=== PATIENT | female | born 2005 | race Caucasian/White ===

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

== ENCOUNTER 2023-06-10 22:11 | Emergency (ER) | payer BC, SELFPAY ==
[2023-06-10 22:26] VITALS: BP 93/62; PULSE 102; RESP 20; TEMP 36.6; O2SAT 97; BMI 20.8
--- OUTSIDE RECORDS SUMMARY | 2023-06-10 22:50 | XMS_ITS | Patient Health Record ---
Author Name Unknown Organization Unknown Care Team Providers Care Log Stacker Operator Name Role Phone Kaylyn Pinto Unavailable [phone] ALLERGIES Allergen (clinical drug ingredient) Drug/Non Drug Allergy documented on EMR Reaction Allergy Type Onset Date Status sulfa (uncoded) Unknown Allergy Acti ve penicillin Unknown Drug Allergy Active RESULTS Component Value Reference Range Notes URINALYSIS, COMPLETE W/REFLE X TO CULTURE Reviewed date:04/05/2023 11:56:55 AM Interpretation: Performing Lab:[facility], [facility] [id number] [facility]sleRS[address] Davon Retana Notes/Report: Received Date: 0 COLOR YELLOW YELLOW APPEARANCE CLEAR CLEAR SPECIFIC GRAVITY 1.022 1.001-1.035 PH 6.0 5.0-8.0 GLUCOSE NEGATIVE NEGATIVE BILIRUBIN NEGATIVE NEGATIVE KETONES NEGATIVE NEGATIVE OCCULT BLOOD NEGATIVE NEGATIVE PROTEIN NEGATIVE NEGATIVE NITRITE NEGATIVE NEGATIVE LEUKOCYTE ESTERASE NEGATIVE NEGATIVE WBC NONE SEEN < OR = 5 /HPF RBC NONE SEEN < OR = 2 /HPF SQUAMOUS EPITHELIAL CELLS NONE SEEN < OR = 5 /HPF BACTERIA NONE SEEN NONE SEEN /HPF CALCIUM OXALATE CRYSTALS FEW NONE OR FEW /HPF HYALINE CAST NONE SEEN NONE SEEN /LPF NOTE See Note This urine was analyzed for the presence of WBC, RBC, bacteria, casts, and other formed elements. Only those elements seen were reported. REFLEXIVE URINE CULTURE See Note NO C ULTURE INDICATED REASON FOR REFERRAL No Information MEDICATIONS Medication SIG (Take, Route, Frequency, Duration) Notes Start Date End Date Status Remicade 100 mg as directed intravenously every 8 weeks Active Nexplanon 68 mg 1 ea subcutaneously once Active Fluocinonide 0.05% 1 silas applied topica lly 3 times a day PRN scalp irritation. Max use 14 consecutive days. for 14 days 04/02/2023 Active ZyrTEC 10 mg 1 tab(s) orally once a day Not-Taking atenolol 50 mg 1 tab(s) orally once a day for 30 day(s) Not-Taking HydrOXYzine Hydrochloride hydrochloride 25 mg 1 tab(s) orally at bedtime PRN insomnia for 90 days 04/02/2023 Active IMMUNIZATIONS Vaccine Route Administration Date Status Comme nts Influenza IM Intramuscular 05/27/2020 Administered PROBLEMS Problem Type ICD Code Onset Dates Problem Status W/U Status Risk SNOMED Code Notes Problem Insomnia, unspecified (G47.00) Active confirmed Insomnia (279271754) Problem Supraventricular tachycardia (I47.1) Active confirmed Supraven tricular tachycardia (9806889) Problem Ulcerative colitis, unspecified, without complications (K51.90) Active confirmed Ulcerative coli tis (52411871) VITAL SIGNS Heart Rate 73 /min 04/02/2023 Temperature 97.3 degrees Fahrenheit 04/02/2023 Oximetry 98% 04/02/2023 Blood pressure diastolic 78 mm Hg 04/02/2023 Height 64.0 in 04/02/2023 Blood pressure systolic 122 mm Hg 04/02/2023 Weight 124.2 lbs 04/02/2023 BMI 21.32 04/02/2023 Encounters Encounter Location Date Provider Diagnosis [address] [address] 04/02/2023 Kaylyn Pinto Ulcerative colitis, unspecified, without complications K51.90 ; Encounter for general adult medical examination with abnormal findings Z00.01 ; Supraventricular tachycardia I47.1 ; Insomnia, unspecified G47.00 and Other fatigue R53.[address] [address] 05/24/2023 Kaylyn Pinto ASSESSMENTS Encounter Date Diagnosis Assessment Notes Treatment Notes Treatment Clinical Notes 04/02/2023 Encounter for genera l adult medical examination with abnormal findings (ICD-10 - Z00.01) lab order given, she will have labs drawn at GI appt tomorrow 04/02/2023 Ulcerative colitis, unspecified, without complications (ICD-10 - K51.90) 04/02/2023 Supraventricular tachycardia (ICD-10 - I47.1) 04/02/2023 Insomnia, unspecifie d (ICD-10 - G47.00) 04/02/2023 Other fatigue (ICD-1 0 - R53.83) PLAN OF TREATMENT Pending Test Test Name Order Date IRON, TOTAL 04/02/2023 CBC (INCLUDES DIFF/PLT) 04/02/2023 VITAMIN B12/FOLATE, SERUM PANEL 04/02/20 COMPREHENSIVE METABOLIC PANEL W/EGFR TSH, 3RD GENERATION W/REFLEX TO FT4 03/14 Insurance Providers Payer Name Payer Address Payer Phone Subscriber Number Group Number Insured Name Patient Relationship to Insured Coverage Start Date Coverage End Date [employer] [address] [place] [address] [phone] [id number] Yazmin Dudley Self - patient is the insured MEDICAL (GENERAL) HISTORY Medical History History ICD Code SVT Ulcerative colitis Surgical History Surgery Date(Month/Year)
--- NOTE | 2023-06-10 23:17 | ED_ITS ---
HPI - General Adult General Date Seen: 06/10/23 Chief complaint: Chest Pain Stated complaint: heart palpitations lasted 30 min has svt Time Seen by Provider: 06/10/23 22:28 Source: patient Mode of arrival: ambulatory Limitations: no limitations History of Present Illness HPI narrative: Patient is a 18-year-old with a history of SVT since she was 11. She is from [place], she is a [employer] student. She used to be on atenolol but around a year ago stopped taking it daily and now uses that on a p.r.n. basis. She has infrequent bouts of SVT but tonraquel had onset of symptoms, took an atenolol, and then it took about half an hour for her symptoms to resolve. She says usually they go away pretty quickly and tonight was unusual in terms of how long it lasted. She said she and her mom were both kind of freaking out. By the time she got to the hospital palpitations had stopped and she now feels back to normal. She notes a little bit of soreness in her chest, no difficulty breathin g. She denies any recent illness or injury. She has no complaints otherwise at this time. Related Data Home Medications Medication Instructions Recorded Confirmed atenolol 50 mg tablet 50 mg PO Q24H PRN 04/21/22 06/10/23 cetirizine 10 mg capsule (Zyrtec) 10 mg PO DAILY PRN 04/21/22 06/10/23 rizatriptan 10 mg tablet 10 mg PO Q2H PRN 04/21/22 06/10/23 etonogestrel 68 mg subdermal 1 implant subdermal 08/24/22 implant (Nexplanon) infliximab 100 mg intravenous IV .every 8 weeks 06/10/23 solution (Remicade) Allergies Allergy/AdvReac Type Severity Reaction Status Date / Time Sulfonylureas Allergy Unknown Verified 06/10/23 22:24 Penicillins Allergy Verified 06/10/23 22:24 Sulfa (Sulfonamide Allergy Verified 06/10/23 22:24 Antibiotics) Review of Systems Status of ROS: Reports: 6 or more systems reviewed and unremarkable except as noted in History and below PFSH PFSH Social History Smoking Status: Never smoker Do you use any of these nicotine containing products: None Non-prescribed substance use: denies use Exam Narrative: Exam Narrative: Vital signs as noted above. In general, an alert, well-appearing young woman. Head: Normocephalic, atraumatic. Eyes: Pupils are equal reactive. Extraocular movements are full. Conjunctivae are normal. ENT: Mucous membranes are moist. Neck: Supple without lymphadenopathy. Heart: Regular rate and rhythm. No murmur or rub. Lungs: Clear bilaterally. No increased work of breathing, crackles or wheezes. Extremities: Well perfused. No edema. No calf tenderness. Pulses intact. Neurologic: Patient is alert and oriented to person and place. Speech is fluent. Face is symmetric. Moves all extremities equally. Affect: Normal. Skin: Warm and dry. Well perfused. Const: Vital Signs, click to edit/add: Vital Signs - 24 hr 06/10/23 22:26 Temperature 97.8 F Pulse Rate [Pulse Oximeter] 102 H Respiratory Rate 20 Blood Pressure [Ri ght Upper Arm] 93/62 Pulse Oximetry 97 Oxygen Delivery Me thod Room Air Documenting provider has reviewed patient's vital signs: yes Course Course ED Course: I did an EKG here, she is in a normal sinus rhythm she has a significant first- degree AV block of 336 milliseconds. She does say that a 1st degree AV block is been noted previously. She has had evaluation with Cardiology in the past and says that structurally everything was normal. The really only outlying feature of neil's episode was that it lasted longer than usual. It did abort prior to arrival here and she says she was not sure whether she should come in or not but decided to get checked out. I offered blood work but also told her that I did not think it would likely climate change risk assessor, she does not have any reason for electrolyte abnormalities. Does have ulcerative colitis but has not had significant diarrhea this is well controlled. She would prefer not to do additional workup at this time which I think is reasonable. If she is having more frequent bouts of SVT or is finding that they are lasting longer, she can certainly talk with her biscuitware brusher about taking atenolol regularly again. Return at any time for persistent or severe symptoms. Vital Signs Vital signs: Initial Vital Signs Temperature 97.8 F 06/10/23 22:26 Temperature Source Temporal Artery Scan 06/10/23 22:26 Pulse Rate 102 H 06/10/23 22:26 Pulse Rhythm Regular 06/10/23 22:26 Pulse Strength 3+ Normal 06/10/23 22:26 Respiratory Rate 20 06/10/23 22:26 Blood Pressure 93/62 06/10/23 22:26 Blood Pressure Mean 72 06/10/23 22:26 Blood Pressure Position Sitting 06/10/23 22:26 Pulse Oximetry 97 06/10/23 22:26 Oxygen Delivery Method Room Air 06/10/23 22:26 Vital Signs Temperature 97.8 F 06/10/23 22:26 Pulse Rate 102 H 06/10/23 22:26 Respiratory Rate 20 06/10/23 22:26 Blood Pressure 93/62 06/10/23 22:26 Pulse Oximetry 97 06/10/23 22:26 Oxygen Delivery Method Room Air 06/10/23 22:26 Temperature 97.8 F 06/10/23 22:26 Pulse Rate 102 H 06/10/23 22:26 Respiratory Rate 20 06/10/23 22:26 Blood Pressure 93/62 06/10/23 22:26 Pulse Oximetry 97 06/10/23 22:26 Oxygen Delivery Method Room Air 06/10/23 22:26 Discharge Plan Discharge Clinical Impression: Hx of supraventricular tachycardia Patient Disposition: Home, Self-Care Condition: Improved Instructions: Supraventricular Tachycardia (ED) Additional Instructions: Return as needed for symptoms that persist despite treatment, or for new symptoms such as fainting, severe pain, difficulty breathing. Discuss further with her biscuitware brusher as needed if you are having more frequent episodes of SVT. Prescriptions: No Action rizatriptan 10 mg tablet 10 mg PO Q2H PRN Patient Comments: TAKE ONE TABLET BY MOUTH AT ONSET OF HEADACHE IF NEEDED atenolol 50 mg tablet 50 mg PO Q24H PRN Zyrtec 10 mg capsule 10 mg PO DAILY PRN Nexplanon 68 mg implant 1 implant subdermal infliximab [Remicade] 100 mg recon soln IV .every 8 weeks Follow Up/Referrals: Provider,Not a Local [Primary Care Provider] - Stand Alone Forms: MyHealth Info Instructions
== END 2023-06-10 23:01 | disposition home or self-care (01) ==
PROVIDERS: Emergency Provider Emergency Medicine
DX: I47.10 Supraventricular tachycardia, unspecified (principal)
CPT/HCPCS: 93005; 99283

== ENCOUNTER 2023-11-13 13:00 | Outpatient (RCR) | payer BC, SELFPAY ==
[2023-05-28 11:35] LABS: Basophils Absolute Auto 0.03 K/uL (0.00-0.30); Basophils Percent Auto 0.4 % (0.0-3.0); Eosinophils Percent Auto 10.3 % (0.0-7.0); Hematocrit 42.6 % (33.0-51.0); Hemoglobin* 13.9 gm/dL (12.0-16.0); Lymphocytes Absolute Auto 3.06 K/uL (0.90-2.90); Lymphocytes Percent Auto 39.3 % (20-44); Mean Corpuscular HGB Conc 33 gm/dL (32-36); Mean Corpuscular Hemoglobin 31 pg (26-34); Mean Corpuscular Volume 94 fL (80-100); Monocytes Percent Auto 6.2 % (0.0-11.0); Neutrophils Absolute Auto 3.42 K/uL (1.7-7.0); Neutrophils Percent Auto 43.8 % (42.0-72.0); Platelet Count* 296 K/uL (140-440); RDW Coefficient of Variation % 12.7 % (11.5-15.5); Red Blood Count 4.53 m/uL (4.00-5.20); White Blood Count* 7.79 K/uL (4.50-11.00)
[2023-05-28 11:36] LABS: Slide Review Reflex No
[2023-05-28 11:38] VITALS: BP 95/54; PULSE 76; RESP 16; TEMP 36.9; O2SAT 100
[2023-05-28 11:49] LABS: Albumin* 4.5 g/dL (3.3-5.0); Chloride* 107 mmol/L (96-114); Potassium* 3.7 mmol/L (3.6-5.1); Sodium* 141 mmol/L (135-149)
[2023-05-28 11:51] LABS: Creatinine* 0.6 mg/dL (0.5-1.5); Estimated Glomerular Filt Rate 132 ml/min
[2023-05-28 11:52] LABS: Alanine Aminotransferase* 18 U/L (4-35); Alkaline Phosphatase* 64 U/L (40-150); Anion Gap 12 mEq/L (7-15); Aspartate Amino Transferase* 26 U/L (12-35); Bilirubin Total* 0.6 mg/dL (0.1-1.5); Blood Urea Nitrogen* 14 mg/dL (5-24); Carbon Dioxide* 22 mmol/L (20-32); Glucose* 84 mg/dL (60-115); Total Protein* 7.4 g/dL (6.0-8.3)
[2023-05-28 11:53] LABS: Calcium* 9.3 mg/dL (8.4-10.6)
[2023-05-28] MEDS: HYDROCORTISONE SOD SUCCINATE 50 MG/ML inj 200 MG IVP (11:57)
[2023-05-28] MEDS: ACETAMINOPHEN 325 MG TABLET 650 MG PO (11:57)
[2023-05-28] MEDS: 0.9 % SODIUM CHLORIDE 250 ml 250 ML 35 ML IV (11:58)
[2023-05-28 12:03] LABS: C Reactive Protein* < 0.5 mg/dL (0.5-1.0); Iron* 91 ug/dL (37-170)
--- NOTE | 2023-05-28 12:30 | ONC.NURNOTE ---
Patient has had 25lbs weight loss since last winter. Her PCP is aware and had extra labs drawn today. Those will be faxed by Lab. Original order for Remicade was 400mg. When we saw patient back in september, patient had already had some weight loss and verbal order from SERGO Blanchard was given to pharmacy to give 300mg. Today, patient weighed 122lbs and dose was for 277mg (rounded up to 300mg). Pharmacy made the change in the system based off of the verbal order that was given back in September. Will update Dr. Villatoro when Remicade assessment and labs are faxed.
[2023-05-28 12:41] LABS: Vitamin B12* 555 pg/mL (243-894)
--- NOTE | 2023-10-25 11:17 | ONC.NURNOTE ---
Received new orders for Remicade from Dr. Villatoro, submitted to for prior auth. Remicade denied at our facility due to site of care and pt having a car and the ability to drive. Former Hand has spoken to Clementine- Dr. Villatoro's nurse this morning and she is aware of the situation. Pt's mother left message stating she has spoken to her ins company hoping they will approve the infusion in [facility], she wanted to make an appt for 11/13/23 for Remicade to hold her spot. Former Hand then called Clementine at [facility] office who spoke to pt's insurance company and feel she will not be approved for [facility] infusion center. Clementine will call pt's mother and discuss situation.
--- NOTE | 2023-11-02 12:04 | URNOTE ---
Addendum entered by Mabel Frias RN 11/07/23 10:10: Verified per Evelyn Bowser at [facility] this is approved as stated below with REf #[id number]. Call ref #[id number] Original Note: Received approval of Remicade (J1745) from [facility]. Approved 11/12/2023-03/03/2024 for 3 visits. REf #[id number]
--- NOTE | 2023-11-05 11:12 | ONC.NURNOTE ---
Lm for Dr. Villatoro clarifying 2 things. 1) Regarding Remicade dosing. Dosing with wt of 55.9kg is 300mg, from 09/18/23 at pt's home clinic in [place]. Current order is for 400mg. Asked Dr. Villatoro if he wants to order weight-based dosing or stay with 400mg? 2) Regarding premeds, current orders are for Acetaminophen and Solu-Cortef. In [place] pt also received Benadryl 25mg PO. LM for Dr. Villatoro asking if wants to add Benadryl to premeds. Regarding ordering of Remicade: Received a fax from [facility] requesting prescription for Remicade; fax addressed to Dr. Villatoro with [facility] fax number. Reviewed UR notes; PA does not specify ordering from a specialty pharmacy. Reviewed with Jordyn in pharmacy; with previous infusions, pharmacy ordered Remicade per usual process; it has not come from a specialty pharmacy. Reviewed with pt; she states that at one point her insurance was coordinating her to possibly get med from [facility]/receive at [facility], but both of those plans have ceased, as she has short term approval per UR note. Pt scheduled for Remicade next week.
--- NOTE | 2023-11-08 09:19 | ONC.NURNOTE ---
[facility] Infliximab prescription had been sent to [facility] when pt was anticipated to receive infusions at [facility]. Confirmed PA for NH&C does not require ordering through specialty pharmacy. Prescription cancelled with [facility].
--- NOTE | 2023-11-08 09:23 | ONC.NURNOTE ---
Diagnosis: Ulcerative Colitis
--- NOTE | 2023-11-12 09:14 | ONC.NURNOTE ---
Received PA request from [facility] for infliximab solution. Architectural Modeler called patient to find out if she was aware that mediation needed to be ordered from specialty pharmacy, she was unaware. Concurrently, board writer contacted pharmacy to determine if we have in the past ordered her medication from a specialty pharmacy. Therefore patient's medication to be ordered as buy and bill. Patient aware.
[2023-11-13] MEDS: 0.9 % SODIUM CHLORIDE 250 ml 250 ML 35 ML IV (13:23)
[2023-11-13] MEDS: diphenhydrAMINE 25 MG CAPSULE PO (13:23)
[2023-11-13] MEDS: HYDROCORTISONE SOD SUCCINATE 50 MG/ML inj 200 MG IVP (13:23)
[2023-11-13] MEDS: ACETAMINOPHEN 325 MG TABLET 650 MG PO (13:23)
[2023-11-13 13:30] VITALS: BP 104/63; PULSE 94; RESP 16; TEMP 36.6; O2SAT 98
[2023-11-13] MEDS: inFLIXimab (Remicade) 300 MG, TUBING PRIMARY 1 EACH, In-line 0.2 micron filter set 1 EA... 40 MG IV (13:40)
[2024-06-24 09:09] LABS: Basophils Absolute Auto 0.04 K/uL (0.00-0.30); Basophils Percent Auto 0.5 % (0.0-3.0); Eosinophils Absolute Auto 0.25 K/uL (0.00-0.50); Eosinophils Percent Auto 3.2 % (0.0-7.0); Hematocrit 38.8 % (33.0-51.0); Lymphocytes Percent Auto 58.6 % (20-44); Mean Corpuscular HGB Conc 34 gm/dL (32-36); Mean Corpuscular Hemoglobin 31 pg (26-34); Mean Corpuscular Volume 94 fL (80-100); Monocytes Percent Auto 6.9 % (0.0-11.0); Neutrophils Percent Auto 30.8 % (42.0-72.0); Platelet Count* 241 K/uL (140-440); RDW Coefficient of Variation % 11.9 % (11.5-15.5); Red Blood Count 4.15 m/uL (4.00-5.20); White Blood Count* 7.85 K/uL (4.50-11.00)
[2024-06-24 09:25] LABS: Chloride* 105 mmol/L (96-114)
[2024-06-24 09:26] LABS: Albumin* 4.3 g/dL (3.3-5.0); Potassium* 3.8 mmol/L (3.6-5.1); Sodium* 138 mmol/L (135-149)
[2024-06-24 09:28] LABS: Creatinine* 0.6 mg/dL (0.5-1.5); Est. Creatinine Clearance* 128.62; Estimated Glomerular Filt Rate 131 ml/min
[2024-06-24 09:29] LABS: Alanine Aminotransferase* 16 U/L (4-35); Alkaline Phosphatase* 69 U/L (40-150); Anion Gap 8 mEq/L (7-15); Aspartate Amino Transferase* 24 U/L (12-35); Bilirubin Total* 0.4 mg/dL (0.1-1.5); Blood Urea Nitrogen* 10 mg/dL (5-24); Calcium* 9.3 mg/dL (8.4-10.6); Carbon Dioxide* 25 mmol/L (20-32); Glucose* 85 mg/dL (60-115); Total Protein* 6.9 g/dL (6.0-8.3)
[2024-06-24 09:32] LABS: C Reactive Protein* < 0.5 mg/dL (0.5-1.0)
[2024-06-24 09:59] LABS: Slide Review Reflex No
== END 2023-11-24 23:59 | disposition home or self-care (01) ==
LOC: CCIC 13:00
PROVIDERS: Clinical Nurse Specialist; Referring Provider Internal Medicine Gastroenterology; Visit Provider Internal Medicine Gastroenterology
DX: K51.90 Ulcerative colitis, unspecified, without complications (principal)
CPT/HCPCS: 36415; 36592; 80053; 82607; 83540; 84443; 85025; 86140; 96413; 96415; A9270; J1720; J7050

== ENCOUNTER 2024-04-29 09:00 | Outpatient (RCR) | payer BC, SELFPAY ==
[2024-01-08 13:07] VITALS: BP 104/72; PULSE 86; RESP 18; TEMP 36.6; O2SAT 97
[2024-01-08] MEDS: METHYLPREDNISOLONE SOD SUCC 62.5 MG/ML (125) 200 MG IVP (13:32)
[2024-01-08] MEDS: 0.9 % SODIUM CHLORIDE 250 ml 250 ML 35 ML IV (13:33)
[2024-01-08] MEDS: ACETAMINOPHEN 325 MG TABLET 650 MG PO (13:33)
[2024-01-08] MEDS: inFLIXimab (Remicade) 300 MG, TUBING PRIMARY 1 EACH, In-line 0.2 micron filter set 1 EA... 40 MG IV (13:51)
--- NOTE | 2024-02-06 09:44 | URNOTE ---
Received approval of Remicade (J1745) from [facility]. Approved 03/04/2024 to 03/03/2025 for 7 treatments Ref# [id number]. Note: Pt has existing PA for Remicade (J1745) with date range 11/12/2023-03/03/2024 for 3 visits. Ref #[id number]
[2024-03-04 11:31] VITALS: BP 89/71; PULSE 76; RESP 16; TEMP 36.5; O2SAT 99
[2024-03-04] MEDS: ACETAMINOPHEN 325 MG TABLET 650 MG PO (11:44)
[2024-03-04] MEDS: 0.9 % SODIUM CHLORIDE 250 ml 250 ML 30 ML IV (11:45)
[2024-03-04] MEDS: METHYLPREDNISOLONE SOD SUCC 62.5 MG/ML (125) 200 MG IVP (12:02)
[2024-03-04] MEDS: inFLIXimab (Remicade) 300 MG, TUBING PRIMARY 1 EACH, In-line 0.2 micron filter set 1 EA... 40 MG IV (12:36)
[2024-04-29 08:55] VITALS: BP 94/61; PULSE 74; RESP 14; TEMP 36.3; O2SAT 98
[2024-04-29 09:18] LABS: Basophils Absolute Auto 0.06 K/uL (0.00-0.30); Basophils Percent Auto 0.8 % (0.0-3.0); Eosinophils Absolute Auto 0.35 K/uL (0.00-0.50); Eosinophils Percent Auto 4.8 % (0.0-7.0); Hematocrit 43.1 % (33.0-51.0); Lymphocytes Percent Auto 53.2 % (20-44); Mean Corpuscular HGB Conc 33 gm/dL (32-36); Mean Corpuscular Hemoglobin 31 pg (26-34); Mean Corpuscular Volume 96 fL (80-100); Monocytes Percent Auto 4.8 % (0.0-11.0); Neutrophils Percent Auto 36.4 % (42.0-72.0); Platelet Count* 259 K/uL (140-440); RDW Coefficient of Variation % 12.2 % (11.5-15.5); Red Blood Count 4.51 m/uL (4.00-5.20); White Blood Count* 7.27 K/uL (4.50-11.00)
[2024-04-29 09:20] LABS: Slide Review Reflex No
[2024-04-29] MEDS: ACETAMINOPHEN 325 MG TABLET 650 MG PO (09:25)
[2024-04-29 09:30] LABS: Albumin* 4.5 g/dL (3.3-5.0); Chloride* 105 mmol/L (96-114)
[2024-04-29] MEDS: SODIUM CHLORIDE 0.9 % (FLUSH) 10 ML SYRINGE IVF (09:30)
[2024-04-29 09:31] LABS: Potassium* 3.9 mmol/L (3.6-5.1); Sodium* 139 mmol/L (135-149)
[2024-04-29] MEDS: 0.9 % SODIUM CHLORIDE 250 ml 250 ML 30 ML IV (09:32)
[2024-04-29 09:33] LABS: Bilirubin Total* 0.5 mg/dL (0.1-1.5); Creatinine* 0.7 mg/dL (0.5-1.5); Est. Creatinine Clearance* 110.24; Estimated Glomerular Filt Rate 126 ml/min
[2024-04-29 09:34] LABS: Alanine Aminotransferase* 17 U/L (4-35); Alkaline Phosphatase* 71 U/L (40-150); Anion Gap 8 mEq/L (7-15); Aspartate Amino Transferase* 27 U/L (12-35); Blood Urea Nitrogen* 13 mg/dL (5-24); Calcium* 9.2 mg/dL (8.4-10.6); Carbon Dioxide* 26 mmol/L (20-32); Glucose* 101 mg/dL (60-115); Total Protein* 7.1 g/dL (6.0-8.3)
[2024-04-29 09:41] LABS: C Reactive Protein* < 0.5 mg/dL (0.5-1.0)
[2024-04-29] MEDS: HYDROCORTISONE SOD SUCCINATE 50 MG/ML inj 200 MG IVP (10:00)
[2024-04-29] MEDS: inFLIXimab (Remicade) 300 MG, TUBING PRIMARY 1 EACH, In-line 0.2 micron filter set 1 EA... 40 MG IV (10:21)
[2024-06-24 09:12] VITALS: BP 97/67; PULSE 52; RESP 18; TEMP 36.5; O2SAT 98
[2024-06-24] MEDS: ACETAMINOPHEN 325 MG TABLET 650 MG PO (09:25)
[2024-06-24] MEDS: HYDROCORTISONE SOD SUCCINATE 50 MG/ML inj 200 MG IVP (09:43)
[2024-06-24] MEDS: SODIUM CHLORIDE 0.9 % (FLUSH) 10 ML SYRINGE IVF (09:43)
[2024-06-24] MEDS: inFLIXimab (Remicade) 300 MG, TUBING PRIMARY 1 EACH, In-line 0.2 micron filter set 1 EA... 40 MG IV (10:15)
[2024-06-26 19:21] LABS: QuantiFERON Mitogen minus NIL 9.92 IU/mL; QuantiFERON NIL 0.08 IU/mL; Quantiferon Plus TB1 minus NIL 0.02 IU/mL (<=0.34); Quantiferon Plus TB2 minus NIL 0.02 IU/mL (<=0.34); Quantiferon TB Gold Plus Negative (Negative)
== END 2024-07-06 23:59 | disposition home or self-care (01) ==
LOC: CCIC 09:00
PROVIDERS: Clinical Nurse Specialist; Referring Provider Internal Medicine Gastroenterology; Visit Provider Internal Medicine Gastroenterology
DX: K51.90 Ulcerative colitis, unspecified, without complications (principal)
CPT/HCPCS: 36415; 80053; 85025; 86140; 86480; 96365; 96366; 96376; 96413; 96415; A9270; J1720; J2919; J7050

== ENCOUNTER 2024-12-19 12:45 | Outpatient (RCR) | payer BC, SELFPAY ==
[2024-08-19 13:20] LABS: Hematocrit 41.2 % (33.0-51.0); Hemoglobin* 13.7 gm/dL (12.0-16.0); Immature Granulocytes Abs Auto 0.00 K/uL (0.00-0.30); Immature Granulocytes Pct Auto 0.0 %; Lymphocytes Absolute Auto 3.21 K/uL (0.90-2.90); Mean Corpuscular HGB Conc 33 gm/dL (32-36); Mean Corpuscular Hemoglobin 31 pg (26-34); Mean Corpuscular Volume 94 fL (80-100); RDW Coefficient of Variation % 11.9 % (11.5-15.5); Red Blood Count 4.40 m/uL (4.00-5.20); White Blood Count* 8.95 K/uL (4.50-11.00)
[2024-08-19 13:23] VITALS: BP 102/70; PULSE 92; RESP 16; TEMP 36.9; O2SAT 99
[2024-08-19 13:35] LABS: Chloride* 103 mmol/L (96-114)
[2024-08-19 13:36] LABS: Albumin* 4.4 g/dL (3.3-5.0); Sodium* 137 mmol/L (135-149)
[2024-08-19 13:37] LABS: Potassium* 3.9 mmol/L (3.6-5.1)
[2024-08-19] MEDS: ACETAMINOPHEN 325 MG TABLET 650 MG PO (13:38)
[2024-08-19 13:39] LABS: Alanine Aminotransferase* 16 U/L (4-35); Alkaline Phosphatase* 73 U/L (40-150); Anion Gap 7 mEq/L (7-15); Aspartate Amino Transferase* 23 U/L (12-35); Bilirubin Total* 0.4 mg/dL (0.1-1.5); Carbon Dioxide* 27 mmol/L (20-32); Creatinine* 0.7 mg/dL (0.5-1.5); Est. Creatinine Clearance* 110.24; Estimated Glomerular Filt Rate 126 ml/min; Total Protein* 7.1 g/dL (6.0-8.3)
[2024-08-19 13:40] LABS: Blood Urea Nitrogen* 10 mg/dL (5-24); Calcium* 9.0 mg/dL (8.4-10.6); Glucose* 112 mg/dL (60-115)
[2024-08-19 13:41] LABS: Slide Review Reflex No
[2024-08-19] MEDS: HYDROCORTISONE SOD SUCCINATE 50 MG/ML inj 200 MG IVP (13:47)
[2024-08-19] MEDS: inFLIXimab (Remicade) 300 MG, TUBING PRIMARY 1 EACH, In-line 0.2 micron filter set 1 EA... 40 MG IV (14:10)
[2024-10-14 13:16] LABS: Hematocrit 44.0 % (33.0-51.0); Hemoglobin* 14.6 gm/dL (12.0-16.0); Immature Granulocytes Abs Auto 0.01 K/uL (0.00-0.30); Immature Granulocytes Pct Auto 0.1 %; Lymphocytes Absolute Auto 3.18 K/uL (0.90-2.90); Mean Corpuscular HGB Conc 33 gm/dL (32-36); Mean Corpuscular Hemoglobin 31 pg (26-34); Mean Corpuscular Volume 94 fL (80-100); RDW Coefficient of Variation % 12.3 % (11.5-15.5); Red Blood Count 4.66 m/uL (4.00-5.20); White Blood Count* 10.11 K/uL (4.50-11.00)
[2024-10-14 13:17] VITALS: BP 101/66; PULSE 84; RESP 16; TEMP 36.8; O2SAT 98
[2024-10-14 13:30] LABS: Chloride* 102 mmol/L (96-114)
[2024-10-14 13:31] LABS: Albumin* 4.7 g/dL (3.3-5.0); Potassium* 4.1 mmol/L (3.6-5.1); Sodium* 139 mmol/L (135-149)
[2024-10-14 13:33] LABS: Blood Urea Nitrogen* 14 mg/dL (5-24); Creatinine* 0.8 mg/dL (0.5-1.5); Estimated Glomerular Filt Rate 107 ml/min
[2024-10-14 13:34] LABS: Alanine Aminotransferase* 21 U/L (4-35); Alkaline Phosphatase* 72 U/L (40-150); Anion Gap 10 mEq/L (7-15); Aspartate Amino Transferase* 24 U/L (12-35); Bilirubin Total* 0.6 mg/dL (0.1-1.5); Calcium* 9.3 mg/dL (8.4-10.6); Carbon Dioxide* 27 mmol/L (20-32); Glucose* 87 mg/dL (60-115); Total Protein* 7.5 g/dL (6.0-8.3)
[2024-10-14] MEDS: ACETAMINOPHEN 325 MG TABLET 650 MG PO (13:37)
[2024-10-14] MEDS: HYDROCORTISONE SOD SUCCINATE 50 MG/ML inj 200 MG IVP (13:37)
[2024-10-14] MEDS: inFLIXimab (Remicade) 300 MG, TUBING PRIMARY 1 EACH, In-line 0.2 micron filter set 1 EA... 40 MG IV (14:05)
[2024-10-14 14:14] LABS: Slide Review Reflex No
[2024-12-12 13:08] VITALS: BP 98/65; PULSE 102; RESP 16; TEMP 36.3; O2SAT 99
[2024-12-12 13:18] LABS: Hematocrit 42.3 % (33.0-51.0); Hemoglobin* 13.9 gm/dL (12.0-16.0); Immature Granulocytes Abs Auto 0.01 K/uL (0.00-0.30); Immature Granulocytes Pct Auto 0.1 %; Lymphocytes Absolute Auto 3.20 K/uL (0.90-2.90); Mean Corpuscular HGB Conc 33 gm/dL (32-36); Mean Corpuscular Hemoglobin 31 pg (26-34); Mean Corpuscular Volume 94 fL (80-100); RDW Coefficient of Variation % 12.2 % (11.5-15.5); Red Blood Count 4.50 m/uL (4.00-5.20); White Blood Count* 8.30 K/uL (4.50-11.00)
[2024-12-12 13:28] LABS: Slide Review Reflex No
[2024-12-12 13:36] LABS: Albumin* 4.6 g/dL (3.3-5.0); Chloride* 103 mmol/L (96-114); Potassium* 3.9 mmol/L (3.6-5.1); Sodium* 141 mmol/L (135-149)
[2024-12-12 13:39] LABS: Alanine Aminotransferase* 20 U/L (4-35); Alkaline Phosphatase* 66 U/L (40-150); Anion Gap 10 mEq/L (7-15); Aspartate Amino Transferase* 29 U/L (12-35); Bilirubin Total* 0.6 mg/dL (0.1-1.5); Blood Urea Nitrogen* 12 mg/dL (5-24); Carbon Dioxide* 28 mmol/L (20-32); Creatinine* 0.7 mg/dL (0.5-1.5); Estimated Glomerular Filt Rate 126 ml/min; Total Protein* 7.5 g/dL (6.0-8.3)
[2024-12-12 13:40] LABS: Calcium* 9.2 mg/dL (8.4-10.6); Glucose* 78 mg/dL (60-115)
--- NOTE | 2024-12-12 14:04 | ONC.NURNOTE ---
Pt here for Infliximab. Pt states she had a dermatology appt 2 weeks ago where a spot was removed from her chest and sutured. Pt presents today with increased redness approx 1cm by 0.75 cm. No fever or chills. Discussed with Lo Myers APRN, and she recommended having pt contact her factory process workers to see if she should be placed on antibiotic. Pt will contact her provider and return for Inflximab in one week. Pt verbalized understanding of plan of care.
[2024-12-19 12:32] VITALS: BP 101/66; PULSE 83; RESP 20; TEMP 36.7; O2SAT 98
[2024-12-19] MEDS: ACETAMINOPHEN 325 MG TABLET 650 MG PO (12:55)
[2024-12-19] MEDS: HYDROCORTISONE SOD SUCCINATE 50 MG/ML inj 200 MG IVP (13:21)
[2024-12-19] MEDS: inFLIXimab (Remicade) 300 MG, TUBING PRIMARY 1 EACH, In-line 0.2 micron filter set 1 EA... 40 MG IV (13:36)
--- NOTE | 2024-12-19 15:54 | ONC.NURNOTE ---
Pt here for last Remicade infusion before graduation and moving out of [place]. Her cellulitis has resolved fully; she tolerated antibiotic well. No return of symptoms since last infliximab infusion; tolerated infusion today well.
== END 2025-02-15 23:59 | disposition home or self-care (01) ==
LOC: CCIC 12:45
PROVIDERS: Internal Medicine Gastroenterology; Visit Provider Clinical Nurse Specialist
DX: K51.90 Ulcerative colitis, unspecified, without complications (principal)
CPT/HCPCS: 36415; 80053; 85025; 86140; 96375; 96413; 96415; A9270; J1720; J1745; J7050